=== PATIENT | male | born 1980 | race African-American/Black ===

== ENCOUNTER 2020-07-25 16:09 | Outpatient (CLI) | payer BC ==
--- NOTE | 2020-07-25 16:20 | RAD ---
EXAM: CHEST TWO VIEWS 07/25/2020 4:16 PM HISTORY: Cough COMPARISON: July 09, 2016 FINDINGS: Lungs: Respiratory motion artifact on the lateral projection slightly limits image detail. No defini te focal infiltrate demonstrated. Heart: Normal in size and contour. Pulmonary Vessels: Normal. Costophrenic Angles: Clear. Pneumothorax: None. Osseous Structures: Intact. Additional Findings: None. IMPRESSION: No significant acute intrathoracic disease.
== END 2020-07-25 16:10 | disposition home or self-care (01) ==
LOC: RAD-FRANK 16:09
PROVIDERS: ATTEND Nurse Practitioner Family
DX: R05 Cough (principal)
CPT/HCPCS: 71046